=== PATIENT | male | born 1945 | race Caucasian/White ===

== ENCOUNTER 2017-08-01 19:55 | Emergency (ER) | payer OTHER, MEDICARE ==
--- NOTE | 2017-08-02 16:31 | ER ---
HISTORY OF PRESENT ILLNESS: A 72-year-old male here with complaints of not feeling well since about 3 p.m. this afternoon. He is up here with a gerson on a fishing trip and they were fishing. He states he just did not feel good. He fell weak, a little nauseated. They decided to leave the [place] and head for home which is in the [facility]. They stopped at [place]. His friend went in to use the bathroom. When he came out, the patient was lying on the ground outside of their vehicle. He states he opened the door to get out and that is the last thing he remembered. The patient denies any pain at this point. He denies any chest pain or trouble breathing. He states that he felt kind of groggy initially, but now he feels better. The patient denies any history of heart disease, COPD, or congestive heart failure. He has not been coughing and he states he feels a little bit nauseated but has not been vomiting. OBJECTIVE: GENERAL APPEARANCE: The patient is awake and alert. No obvious distress. VITAL SIGNS: Reviewed. They are normal. Physical exam, HEENT: Ears, TMs are normal. Nares are patent. Eye exam, pupils equal, round, and reactive to light. EOMs are intact without strabismus, nystagmus, or ptosis. Oral mucous membranes moist. Posterior pharynx shows no redness or inflammation. NECK: Supple. LUNGS: Are clear. CARDIAC: Heart sounds distinct without murmurs. ABDOMEN: Soft, protuberant, nontender to palpation. SKIN: Warm and dry. INITIAL TREATMENT: Orthostatic blood pressures were obtained which are stable. LAB WORK: Initially we got a CBC, which looks normal. White count is 6.6. Basic metabolic panel is normal as well. Rapid influenza is negative. At this point, I ordered a troponin and an EKG. He has a normal sinus rhythm and a troponin is negative. DIAGNOSIS: Syncopal episode. TREATMENT PLAN: The patient seems to be doing much better. He was able to walk around the emergency room without any weakness or lightheadedness or dizziness. He feels like he has gotten over whatever it was that was bothering him earlier. At this point, the patient will be discharged to go home with his friend driving. I do want the patient to follow up early next week with his primary care provider for a recheck. He states that [facility]. The patient is to keep that appointment time if at all possible. MARIA LUISA/MEENAKSHI /[id number]
== END 2017-08-01 21:53 | disposition home or self-care (01) ==
LOC: LB.ED 19:55
DX: R55 Syncope and collapse (principal)
CPT/HCPCS: 36415; 80053; 84484; 85025; 87804; 93005; 99283; 99284-25